=== PATIENT | male | born 1975 | race Caucasian/White ===

== ENCOUNTER 2019-01-11 00:03 | Emergency (ER) | payer SELFPAY ==
[~2019-01-11] VITALS: Ht 185.4 cm; Wt 95.3 kg
[2019-01-11 00:25] VITALS: BP 125/76
[2019-01-11] MEDS ORDERED: ONDANSETRON 4 MG TAB.RAPDIS SL ONE (01:30)
[2019-01-11] MEDS ORDERED: HYDROCODONE/APAP 10/325MG 1 EA TABLET PO ONE (01:30)
[2019-01-11] MEDS ORDERED: HYDROCODONE/APAP 10/325MG 1 EA TABLET ONE (01:34)
[2019-01-11] MEDS ORDERED: ONDANSETRON 4 MG TAB.RAPDIS ONE (01:35)
--- NOTE | 2019-01-11 01:40 | NUR ---
pt medicated as ordered.
== END 2019-01-11 03:13 | disposition home or self-care (01) ==
LOC: ER 00:08
DX: M79.641 Pain in right hand (principal); F17.200 Nicotine dependence, unspecified, uncomplicated; Z98.890 Other specified postprocedural states; Z88.5 Allergy status to narcotic agent; Z88.2 Allergy status to sulfonamides; Z88.1 Allergy status to other antibiotic agents
CPT/HCPCS: 29130; 73130; 99283; Q0162

== ENCOUNTER 2019-08-22 20:49 | Emergency (ER) | payer MEDICAID ==
[~2019-08-22] VITALS: Ht 185.4 cm; Wt 81.6 kg
[2019-08-22 21:07] VITALS: BP 118/75
--- NOTE | 2019-08-22 21:26 | NUR ---
X RAY AT THE BED SIDE
[2019-08-22] MEDS ORDERED: IBUPROFEN 600 MG TABLET PO ONE ×2 (21:27→21:30)
--- NOTE | 2019-08-22 22:24 | NUR ---
NEGAR HERNANDEZ PAC AT THE BED SIDE
[2019-08-22] MEDS ORDERED: HYDROCODONE/APAP 5/325MG 1 EACH TABLET ONE (22:29)
[2019-08-22] MEDS ORDERED: HYDROCODONE/APAP 5/325MG 1 EACH TABLET PO ONE (22:30)
--- NOTE | 2019-08-22 22:35 | NUR ---
PT WAS PROVIDED W/ ORTHO SHOES, MEDICATED ORDERED. Patient discharged to home in stable condition. Rx and Written and verbal after care instructions given. Patient verbalizes understanding of instruction.
== END 2019-08-22 22:36 | disposition home or self-care (01) ==
LOC: ER 20:49
DX: S93.505A Unspecified sprain of left lesser toe(s), initial encounter (principal); Z98.890 Other specified postprocedural states; Z88.5 Allergy status to narcotic agent; Z88.2 Allergy status to sulfonamides; Z88.1 Allergy status to other antibiotic agents; W22.8XXA Striking against or struck by other objects, initial encounter; Y93.89 Activity, other specified; Y92.89 Other specified places as the place of occurrence of the external cause; Y99.8 Other external cause status
CPT/HCPCS: 73660-TC

== ENCOUNTER 2019-11-07 00:30 | Emergency (ER) | payer MEDICAID, OTHER ==
[~2019-11-07] VITALS: Ht 185.4 cm; Wt 81.6 kg
--- NOTE | 2019-11-07 00:38 | NUR ---
BIBSELF C/O MIDSTERNAL CHEST PAIN X3 DAYS, WORSE TODAY RADIATING TO BACK ALSO C/O PERSISTENT HICCUPS X8HR, pt awake, alert, -sob, nad noted, vss, pending md olvera
[2019-11-07 00:59] LABS: BASOPHILS # (AUTO) 0.1 /CMM (0.0-0.2); BASOPHILS % (AUTO) 1.1 % (0.0-2.0); EOSINOPHILS % (AUTO) 5.5 % (0.0-6.0); HEMATOCRIT 42 % (39-51); HEMOGLOBIN 14.3 g/dL (13.5-17.5); LYMPHOCYTES # (AUTO) 3.3 /CMM (0.8-4.8); LYMPHOCYTES % (AUTO) 40.7 % (20.0-44.0); MEAN CORPUSCULAR HGB CONC 34 g/dl (31.0-36.0); MEAN CORPUSCULAR VOLUME 91 fL (80-96); MONOCYTES # (AUTO) 0.7 /CMM (0.1-1.30); MONOCYTES % (AUTO) 8.5 % (2.0-12.0); NEUTROPHILS # (AUTO) 3.6 /CMM (1.8-8.9); NEUTROPHILS % (AUTO) 44.2 % (43.0-81.0); PLATELET COUNT (AUTO) 178 /CMM (150-450); RED BLOOD CELL COUNT(AUTO) 4.58 MIL/uL (4.5-6.0); WHITE BLOOD COUNT (AUTO) 8.2 K/uL (4.3-11.0)
[2019-11-07 01:06] LABS: CALCIUM, SERUM 8.8 mg/dL (8.5-10.1); CARBON DIOXIDE 28 mmol/L (21-32); CHLORIDE 103 mmol/L (98-107); CREATININE 1.3 mg/dL (0.6-1.3); GLUCOSE 93 mg/dL (74-106); POTASSIUM 4.2 mmol/L (3.5-5.1); SODIUM SERUM 139 mmol/L (136-145); UREA NITROGEN, BLOOD 20 mg/dL (7-18)
[2019-11-07] MEDS ORDERED: MAG HYDROX/AL HYDROX/SIMETH 30 ML UDC ONE (01:32)
[2019-11-07] MEDS ORDERED: LIDOCAINE VISCOUS 2% UD 15 ML UDC ONE (01:32)
[2019-11-07] MEDS: LIDOCAINE VISCOUS 2% UD 15 ML UDC MM ONE (01:37)
[2019-11-07] MEDS: MAG HYDROX/AL HYDROX/SIMETH 30 ML UDC PO ONE (01:37)
[2019-11-07 01:40] VITALS: BP 114/78
--- NOTE | 2019-11-07 02:00 | NUR ---
Patient discharged to home in stable condition. Written and verbal after care instructions given. Patient verbalizes understanding of instruction.
== END 2019-11-07 02:03 | disposition home or self-care (01) ==
LOC: ER 00:30
DX: R07.89 Other chest pain (principal); Z98.890 Other specified postprocedural states; Z88.5 Allergy status to narcotic agent; Z88.2 Allergy status to sulfonamides; Z88.6 Allergy status to analgesic agent
CPT/HCPCS: 36415; 71045-TC; 80048-TC; 84484-TC; 85025-TC

== ENCOUNTER 2020-04-28 11:13 | Emergency (ER) | payer MEDICAID, OTHER ==
[~2020-04-28] VITALS: Ht 185.4 cm; Wt 81.6 kg
--- NOTE | 2020-04-28 11:15 | NUR ---
PT BIBSELF C/O WORSENING LOWER BACK PAIN X 4 DAYS, DENIES RECENT FALL OR INJURY. VS CHECKED. WAITING FOR MD COLLINS.
[2020-04-28] MEDS ORDERED: KETOROLAC TROMETHAMINE INJ 30 MG/ML VIAL ONE (11:57)
[2020-04-28] MEDS ORDERED: CYCLOBENZAPRINE 10 MG TABLET ONE (11:57)
[2020-04-28] MEDS ORDERED: CYCLOBENZAPRINE 10 MG TABLET PO ONE (12:00)
[2020-04-28] MEDS ORDERED: LIDOCAINE 5% (PATCH) 1 EA PATCH TP SCH (12:00)
[2020-04-28] MEDS ORDERED: KETOROLAC TROMETHAMINE INJ 60 MG/2 ML VIAL IM ONE (12:00)
[2020-04-28 13:25] VITALS: BP 135/86
--- NOTE | 2020-04-28 13:25 | NUR ---
Patient discharged to home in stable condition. Written and verbal after care instructions given. Patient verbalizes understanding of instruction.
== END 2020-04-28 13:25 | disposition home or self-care (01) ==
LOC: ER 11:13
DX: M54.42 Lumbago with sciatica, left side (principal); J45.909 Unspecified asthma, uncomplicated; Z98.890 Other specified postprocedural states; Z88.5 Allergy status to narcotic agent; Z88.2 Allergy status to sulfonamides; Z88.8 Allergy status to other drugs, medicaments and biological substances
CPT/HCPCS: 96372; 99283; J1885

== ENCOUNTER 2020-11-16 22:03 | Emergency (ER) | payer MEDICAID ==
[~2020-11-16] VITALS: Ht 185.4 cm; Wt 99.3 kg
--- NOTE | 2020-11-16 22:05 | NUR ---
PT AAOX4. BIBS FOR C/O L SIDED BURNING CP 11/19 RADIATING TO THE L ARM SINCE 1599. ALSO NOTED ABD DISTENSION. PLACED IN BED 10 ON MONITOR AND PULSE OX. VSS. AWATITING ER MD FOR EVAL AND ORDERS.
[2020-11-16] MEDS ORDERED: IV NS 0.9% 500 ML BAG IV ONE (22:30)
[2020-11-16 22:38] LABS: BASOPHILS # (AUTO) 0.1 /CMM (0.0-0.2); BASOPHILS % (AUTO) 0.7 % (0.0-2.0); EOSINOPHILS % (AUTO) 5.7 % (0.0-6.0); HEMATOCRIT 44 % (39-51); HEMOGLOBIN 15.2 g/dL (13.5-17.5); LYMPHOCYTES # (AUTO) 2.5 /CMM (0.8-4.8); LYMPHOCYTES % (AUTO) 32.5 % (20.0-44.0); MEAN CORPUSCULAR HGB CONC 35 g/dl (31.0-36.0); MEAN CORPUSCULAR VOLUME 91 fL (80-96); MONOCYTES # (AUTO) 0.7 /CMM (0.1-1.30); MONOCYTES % (AUTO) 8.6 % (2.0-12.0); NEUTROPHILS % (AUTO) 52.5 % (43.0-81.0); PLATELET COUNT (AUTO) 202 /CMM (150-450); RED BLOOD CELL COUNT(AUTO) 4.88 MIL/uL (4.5-6.0); WHITE BLOOD COUNT (AUTO) 7.7 K/uL (4.3-11.0)
[2020-11-16 22:52] LABS: CALCIUM, SERUM 9.2 mg/dL (8.5-10.1); CARBON DIOXIDE 28 mmol/L (21-32); CHLORIDE 105 mmol/L (98-107); CREATININE 1.2 mg/dL (0.6-1.3); GLUCOSE 89 mg/dL (74-106); POTASSIUM 4.3 mmol/L (3.5-5.1); SODIUM SERUM 140 mmol/L (136-145); UREA NITROGEN, BLOOD 16 mg/dL (7-18)
[2020-11-16 23:02] LABS: ALANINE AMINOTRANSFERASE 67 U/L (12-78); ALBUMIN 3.8 g/dL (3.4-5.0); ALKALINE PHOSPHATASE 73 U/L (46-116); ASPARTATE AMINOTRANSFERASE 33 U/L (15-37); BILIRUBIN,DIRECT 0.2 mg/dL (0.0-0.2); BILIRUBIN,TOTAL 0.6 mg/dL (0.2-1.0); NT-PRO BNP 126 pg/mL (0-125); TOTAL PROTEIN, SERUM 7.5 g/dL (6.4-8.2)
[2020-11-16] MEDS ORDERED: MAG HYDROX/AL HYDROX/SIMETH 30 ML UDC PO ONE (23:30)
[2020-11-16] MEDS ORDERED: LIDOCAINE VISCOUS 2% UD 15 ML UDC MM ONE (23:30)
--- NOTE | 2020-11-16 23:32 | NUR ---
BROUGHT TO CT
[2020-11-16] MEDS ORDERED: MAG HYDROX/AL HYDROX/SIMETH 30 ML UDC ONE (23:42)
[2020-11-16] MEDS ORDERED: LIDOCAINE VISCOUS 2% UD 15 ML UDC ONE (23:42)
[2020-11-17] MEDS ORDERED: SIME180C70 PO (00:02)
--- NOTE | 2020-11-17 00:08 | NUR ---
Patient discharged to home in stable condition. Written and verbal after care instructions given. Patient verbalizes understanding of instruction and RX. Pt ambulated out of ED. VSS.
--- NOTE | 2020-11-17 00:08 | NUR ---
IV removed. Catheter intact and site benign. Pressure and 4x4 applied to site. No bleeding noted.
[2020-11-17 00:42] VITALS: BP 111/76
== END 2020-11-17 00:42 | disposition home or self-care (01) ==
LOC: ER 22:06
DX: K29.70 Gastritis, unspecified, without bleeding (principal); I25.2 Old myocardial infarction; J45.909 Unspecified asthma, uncomplicated; Z87.891 Personal history of nicotine dependence; Z88.5 Allergy status to narcotic agent; Z88.2 Allergy status to sulfonamides; Z88.1 Allergy status to other antibiotic agents
CPT/HCPCS: 36415; 71045; 74176; 80048; 80076; 83880; 84484; 85025; 93005 ×3; 99285; J7040

== ENCOUNTER 2021-05-30 20:43 | Emergency (ER) | payer MEDICAID ==
[~2021-05-30] VITALS: Ht 185.4 cm; Wt 86.2 kg
[~2021-05-30 20:43] MED LIST: SIME180C47 PO
--- NOTE | 2021-05-30 20:48 | NUR ---
BIBS FOR C/O L SIDED CP RADITING TO THE R NECK X 5-6 HOURS. ALSO W/ C/O L FLABNK PAIN X 1 DAY. PT A/OX4. TOLRATING R/A WELL WITH NO SOB. CONNECTED PT TO MONITOR AND POX
--- NOTE | 2021-05-30 21:25 | NUR ---
LAC #20S/L PATENT AND INTACT. COLLECTED BLOOD AND SENT TO LAB
[2021-05-30] MEDS ORDERED: ONDANSETRON HCL/PF 4 MG/2 ML VIAL ONE (21:29)
[2021-05-30] MEDS ORDERED: ONDANSETRON HCL/PF 4 MG/2 ML VIAL IVP ONE (21:30)
[2021-05-30] MEDS ORDERED: MORPHINE SULFATE INJ 2 MG/ML DISP.SYRIN IV ONE (21:30)
[2021-05-30] MEDS ORDERED: MORPHINE SULFATE INJ 4 MG/ML DISP.SYRIN ONE (21:30)
--- NOTE | 2021-05-30 21:38 | NUR ---
PT TAKEN TO CT VIA [facility]
[2021-05-30 22:11] LABS: BILIRUBIN,URINE NEGATIVE (NEGATIVE); COLOR,URINE YELLOW (YELLOW); LEUKOCYTE ESTERASE ,URINE NEGATIVE (NEGATIVE); NITRITE, URINE NEGATIVE (NEGATIVE); PROTEIN,URINE NEGATIVE (NEGATIVE); UGLUCOSE NEGATIVE (NEGATIVE); UROBILINOGEN,URINE 0.2 EU/dL (0.2)
[2021-05-30 22:13] LABS: BASOPHILS % (AUTO) 0.7 % (0.0-2.0); EOSINOPHILS % (AUTO) 4.6 % (0.0-6.0); HEMATOCRIT 40 % (39-51); LYMPHOCYTES % (AUTO) 29.1 % (20.0-44.0); MEAN CORPUSCULAR HGB CONC 35 g/dl (31.0-36.0); MEAN CORPUSCULAR VOLUME 90 fL (80-96); MONOCYTES # (AUTO) 0.6 K/uL (0.1-1.30); MONOCYTES % (AUTO) 9.3 % (2.0-12.0); NEUTROPHILS # (AUTO) 3.9 K/uL (1.8-8.9); NEUTROPHILS % (AUTO) 56.3 % (43.0-81.0); PLATELET COUNT (AUTO) 169 K/uL (150-450); RED BLOOD CELL COUNT(AUTO) 4.46 MIL/uL (4.5-6.0)
[2021-05-30] MEDS ORDERED: KETOROLAC TROMETHAMINE INJ 30 MG/ML VIAL ONE (22:23)
[2021-05-30 22:24] LABS: CALCIUM, SERUM 8.5 mg/dL (8.5-10.1); CARBON DIOXIDE 23 mmol/L (21-32); CHLORIDE 108 mmol/L (98-107); CREATININE 1.3 mg/dL (0.6-1.3); GLUCOSE 118 mg/dL (74-106); POTASSIUM 3.8 mmol/L (3.5-5.1); SODIUM SERUM 140 mmol/L (136-145); UREA NITROGEN, BLOOD 18 mg/dL (7-18)
--- NOTE | 2021-05-30 22:28 | NUR ---
PT C/O 01/19 CP. KASHIF PARHAM GAVE VERBAL ORDER FOR TORADOL 30MG IVP ONCE FOR CP. ORDERS CARRIED OUT AND ADMIN. VSS BP 110/73
[2021-05-30 22:29] LABS: ALANINE AMINOTRANSFERASE 39 U/L (12-78); ALBUMIN 3.6 g/dL (3.4-5.0); ALKALINE PHOSPHATASE 90 U/L (46-116); ASPARTATE AMINOTRANSFERASE 17 U/L (15-37); BILIRUBIN,DIRECT 0.2 mg/dL (0.0-0.2); BILIRUBIN,TOTAL 0.9 mg/dL (0.2-1.0); LIPASE 76 U/L (73-393)
[2021-05-30] MEDS ORDERED: KETOROLAC TROMETHAMINE INJ 30 MG/ML VIAL IV ONE (23:00)
[2021-05-31] MEDS ORDERED: MORPHINE SULFATE INJ 4 MG/ML DISP.SYRIN ONE (00:26)
[2021-05-31] MEDS ORDERED: MORPHINE SULFATE INJ 2 MG/ML DISP.SYRIN IV ONE (00:30)
[2021-05-31] MEDS ORDERED: IBUP-1957 PO (01:11)
--- NOTE | 2021-05-31 01:20 | NUR ---
Patient discharged to home in stable condition. Written and verbal after care instructions given. Patient verbalizes understanding of instruction. IV removed. Catheter intact and site benign. Pressure and 4x4 applied to site. No bleeding noted. PT ambulatory with a steady gait
[2021-05-31 01:22] VITALS: BP 105/70
[2021-05-31 03:50] LABS: BACTERIA,URINE None seen /HPF (None Seen); SQUAMOUS EPITHELIAL CELL,UR Few /HPF (None Seen)
[2021-05-31 07:19] LABS: WBC,URINE 0-2 /HPF (0-3)
== END 2021-05-31 01:20 | disposition home or self-care (01) ==
LOC: ER 20:45
DX: R07.89 Other chest pain (principal); N20.0 Calculus of kidney; J45.909 Unspecified asthma, uncomplicated; I25.2 Old myocardial infarction; E78.5 Hyperlipidemia, unspecified; F17.290 Nicotine dependence, other tobacco product, uncomplicated; Z88.2 Allergy status to sulfonamides; Z88.8 Allergy status to other drugs, medicaments and biological substances; Z79.1 Long term (current) use of non-steroidal anti-inflammatories (NSAID); Z79.899 Other long term (current) drug therapy
CPT/HCPCS: 36415 ×2; 71045; 74176; 80048; 80076; 81001; 83690; 84484 ×2; 85025; 93005; 96374; 96375; 96376; 99285; J1885; J2270 ×2; J2405

== ENCOUNTER 2021-08-08 15:40 | Inpatient (IN) | payer MEDICAID ==
[~2021-08-08] VITALS: Ht 185.4 cm; Wt 100.7 kg
[~2021-08-08 15:40] MED LIST changes: +IBUP-1957 PO
--- NOTE | 2021-08-08 15:40 | NUR ---
SENT TO ER BED 10. BIB SELF C/O CHEST PAIN, HAS HISTORY OF HEART ATTACK A YEAR PRIOR. ATTACHED TO MONITOR. WARM BLANKET PROVIDED FOR COMFORT. AWAITING MD COLLINS
--- NOTE | 2021-08-08 16:01 | NUR ---
SALINE LOCK ESTABLISHED AND BLOOD DRAWN, READY FOR LAB DIORAMIST
[2021-08-08] MEDS ORDERED: ASPIRIN 325 MG TABLET ONE (16:15)
[2021-08-08] MEDS ORDERED: ASPIRIN 325 MG TABLET PO ONE (16:30)
[2021-08-08 16:39] LABS: BASOPHILS # (AUTO) 0.1 K/uL (0.0-0.2); BASOPHILS % (AUTO) 0.9 % (0.0-2.0); EOSINOPHILS % (AUTO) 4.6 % (0.0-6.0); HEMATOCRIT 44 % (39-51); HEMOGLOBIN 15.3 g/dL (13.5-17.5); LYMPHOCYTES # (AUTO) 2.3 K/uL (0.8-4.8); LYMPHOCYTES % (AUTO) 29.2 % (20.0-44.0); MEAN CORPUSCULAR HGB CONC 35 g/dl (31.0-36.0); MEAN CORPUSCULAR VOLUME 90 fL (80-96); MONOCYTES # (AUTO) 0.6 K/uL (0.1-1.30); MONOCYTES % (AUTO) 8.1 % (2.0-12.0); NEUTROPHILS # (AUTO) 4.4 K/uL (1.8-8.9); NEUTROPHILS % (AUTO) 57.2 % (43.0-81.0); PLATELET COUNT (AUTO) 206 K/uL (150-450); RED BLOOD CELL COUNT(AUTO) 4.91 MIL/uL (4.5-6.0); WHITE BLOOD COUNT (AUTO) 7.8 K/uL (4.3-11.0)
--- NOTE | 2021-08-08 16:41 | NUR ---
COVID TEST COLLECTED AND SENT
--- NOTE | 2021-08-08 16:44 | NUR ---
X RAY AT BEDSIDE
[2021-08-08] MEDS ORDERED: ATOR40TA PO (17:08)
[2021-08-08] MEDS ORDERED: AMLO-212 PO (17:08)
[2021-08-08] MEDS ORDERED: PANT40TA49 PO (17:08)
[2021-08-08] MEDS ORDERED: METO25TA20 PO (17:08)
[2021-08-08] MEDS ORDERED: FAMO20TA8 PO (17:08)
[2021-08-08] MEDS ORDERED: ASPI-1420 PO (17:08)
[2021-08-08] MEDS ORDERED: CLOP75TA15 PO (17:08)
[2021-08-08] MEDS ORDERED: KETOROLAC TROMETHAMINE 15 MG/ML VIAL ONE (17:30)
[2021-08-08 17:45] LABS: ALANINE AMINOTRANSFERASE 50 U/L (12-78); ALBUMIN 3.8 g/dL (3.4-5.0); ALKALINE PHOSPHATASE 95 U/L (46-116); ASPARTATE AMINOTRANSFERASE 29 U/L (15-37); BILIRUBIN,DIRECT 0.1 mg/dL (0.0-0.2); BILIRUBIN,TOTAL 1.3 mg/dL (0.2-1.0); CALCIUM, SERUM 8.6 mg/dL (8.5-10.1); CARBON DIOXIDE 26 mmol/L (21-32); CHLORIDE 104 mmol/L (98-107); CREATININE 1.1 mg/dL (0.6-1.3); GLUCOSE 85 mg/dL (74-106); POTASSIUM 4.1 mmol/L (3.5-5.1); SODIUM SERUM 137 mmol/L (136-145); TOTAL PROTEIN, SERUM 7.5 g/dL (6.4-8.2); UREA NITROGEN, BLOOD 17 mg/dL (7-18)
[2021-08-08] MEDS ORDERED: KETOROLAC TROMETHAMINE INJ 30 MG/ML VIAL IV ONE (18:00)
[2021-08-08] MEDS ORDERED: MORPHINE SULFATE INJ 2 MG/ML DISP.SYRIN ONE (18:42)
--- NOTE | 2021-08-08 18:58 | NUR ---
SPOKE TO LABORER [employer] NE[employer] OF [facility] [phone] RE CURRENT OF PATIENT. SHE WILL DISCUSS THE CASE AND CALL ADMITTING OF ANY AUTHORIZATION
--- NOTE | 2021-08-08 19:30 | NUR ---
PT AUTHORIZED TO STAY.
--- NOTE | 2021-08-08 19:35 | NUR ---
DR. MADDOX TALKING TO MARIA DEL CARMEN PARHAM.
--- NOTE | 2021-08-08 19:43 | NUR ---
CALLED DR. GUTIERREZ OFFICE, AND MARIA DEL CARMEN PARHAM AND DR. GUTIERREZ SPEAKING NOW
[2021-08-08] MEDS ORDERED: ENOXAPARIN SODIUM 100 MG/ML DISP.SYRIN SQ ONE ×2 (20:00→20:19)
[2021-08-08] MEDS ORDERED: METOPROLOL TARTRATE 25 MG TABLET PO ONE (20:00)
[2021-08-08] MEDS ORDERED: METOPROLOL TARTRATE 25 MG TABLET ONE (20:19)
--- NOTE | 2021-08-08 20:47 | NUR ---
ASSIGNED 315-1
--- NOTE | 2021-08-08 21:05 | NUR ---
REPORT GIVEN TO DIGNA Bell RN FOR HEAVEN
[2021-08-08 21:40] VITALS: BP 133/81
[2021-08-08 22:00] VITALS: BP 133/79
[2021-08-08] MEDS ORDERED: ZOLPIDEM TARTRATE 5 MG TABLET PO PRN (22:00)
--- NOTE | 2021-08-08 22:00 | NUR ---
PT TRANSFERRED TO 315-1 VIA ACLS PROTOCOL. ALL BELONGINGS WITH PT. VSS; TOLERATING WELL
[2021-08-08] MEDS: MORPHINE SULFATE INJ 2 MG/ML DISP.SYRIN IV PRN (22:12)
[2021-08-08] MEDS ORDERED: ONDANSETRON 4 MG TAB.RAPDIS PO PRN (23:00)
[2021-08-08] MEDS ORDERED: HYDROCODONE/APAP 5/325MG TABLET PO PRN (23:00)
[2021-08-08] MEDS ORDERED: ACETAMINOPHEN 325 MG TABLET PO PRN (23:00)
--- NOTE | 2021-08-08 23:25 | NUR ---
SEED YEAST OPERATOR NOTE Patient arrived to unit at 2130 accompanied by ER staff. Appears in no distress, but patient does report 8/10 chest pain -will medicate with PRN Morphine as ordered. Denies SOB, headache, n/v. No diaphoresis noted. HR 61, rhythm regular. B/P 133/81, RR 19, O2 sat 97%, temp 97.7. Patient is A&Ox4, pupils equal and reactive to light, lung sounds clear, bowel sounds active x4 quadrants. Ambulatory and steady. Skin intact. Patient oriented to unit and protocols. Tele monitor applied promptly. Will keep NPO post midnight for [facility] in AM -consents signed.
[2021-08-09] VITALS: BP 128/80
[2021-08-09] MEDS: MORPHINE SULFATE INJ 2 MG/ML DISP.SYRIN IV PRN (01:14)
[2021-08-09] MEDS ORDERED: NITROGLYCERIN 0.4 MG/TAB BOTTLE SL PRN (02:02)
--- NOTE | 2021-08-09 02:14 | NUR ---
accidentally paged [facility] for Dr. Hassan patient. ERROR. order for nitro and EKG D/C'd. Paging Dr. Hassan now.
--- NOTE | 2021-08-09 02:15 | NUR ---
Patient reports CP still as 9/10 and pressure-like causing him to feel SOB despite O2 sats currently being 100%, CP radiates to L shoulder, and L side of body feels "tingly". However, L side pulses and normal and extremities are warm. Chest pain is UNRESOLVED despite morphine being given 45 minutes prior to secondary complaint. B/P 123/86, HR 63. Dr. Hassan paged with new order to d/c morphine and change to Dilaudid 1mg PRN Q3H for severe pain. and STAT CT chest with contrast.
[2021-08-09] MEDS ORDERED: IV NS 0.9% 250 ML IV ONE ×2 (02:35→09:27)
[2021-08-09] MEDS ORDERED: IOHEXOL-300 100 ML VIAL IV ONE (02:35)
[2021-08-09] MEDS: HYDROMORPHONE 1 MG/1 ML DISP.SYRIN IV PRN ×3 (03:15→10:16)
[2021-08-09 04:00] VITALS: BP 116/75
[2021-08-09 04:30] LABS: BASOPHILS % (AUTO) 0.6 % (0.0-2.0); EOSINOPHILS % (AUTO) 5.2 % (0.0-6.0); HEMATOCRIT 43 % (39-51); HEMOGLOBIN 14.7 g/dL (13.5-17.5); LYMPHOCYTES # (AUTO) 2.9 K/uL (0.8-4.8); LYMPHOCYTES % (AUTO) 37.7 % (20.0-44.0); MEAN CORPUSCULAR HGB CONC 34 g/dl (31.0-36.0); MEAN CORPUSCULAR VOLUME 89 fL (80-96); MONOCYTES # (AUTO) 0.7 K/uL (0.1-1.30); MONOCYTES % (AUTO) 9.4 % (2.0-12.0); NEUTROPHILS # (AUTO) 3.7 K/uL (1.8-8.9); NEUTROPHILS % (AUTO) 47.1 % (43.0-81.0); PLATELET COUNT (AUTO) 183 K/uL (150-450); RED BLOOD CELL COUNT(AUTO) 4.83 MIL/uL (4.5-6.0); WHITE BLOOD COUNT (AUTO) 7.8 K/uL (4.3-11.0)
[2021-08-09 05:09] LABS: CALCIUM, SERUM 8.4 mg/dL (8.5-10.1); CREATININE 1.1 mg/dL (0.6-1.3); POTASSIUM 4.4 mmol/L (3.5-5.1)
--- NOTE | 2021-08-09 05:22 | NUR ---
Chest CT still unread -call radiology health information internship line
--- NOTE | 2021-08-09 06:42 | NUR ---
Patient currently A&Ox4, states that the dilaudid works much better for him than the dilaudid and made the chest pain go away for almost [address] of chest came back negative for any acute processes. Patient has been SR in 60s and 70s on tele monitor. Has been NPO since midnight. RAC #20G IV intact and patent.
--- NOTE | 2021-08-09 07:28 | NUR ---
IS ARCHITECT OPENING NOTES RECEIVED PT AWAKE IN BED IN NO ACUTE SIGNS OF DISTRESS. A/O X4. ABLE TO MAKE NEEDS KNOWN, DENIES PAIN OR ANY DISCOMFORTS AT THIS TIME. ON ROOM AIR, TOLERATING WELL WITH NO SOB NOTED. ON TELE-MONITOR WITH CURRENT READING OF SB, HR 58, NO C/O CARDIAC DISTRESS VOICED AT THIS TIME. IV ACCESS ON RAC G#18 INTACT, PATENT AND FLUSHES WELL. SAFETY PRECAUTIONS IN PLACE: BED IN LOWEST LOCKED POSITION, SIDE-RAILS UPx2, TRAY TABLE AND CALL LIGHT WITHIN EASY REACH OF PT. WILL CONTINUE TO MONITOR.
[2021-08-09] MEDS ORDERED: PANTOPRAZOLE 40 MG TABLET.DR PO SCH (07:30)
[2021-08-09] MEDS: METOPROLOL TARTRATE 25 MG TABLET PO SCH ×2 (08:18→16:24)
[2021-08-09] MEDS: FAMOTIDINE (20 MG) 20 MG TABLET PO SCH ×2 (08:20→16:23)
[2021-08-09 08:38] VITALS: BP 113/75
[2021-08-09] MEDS ORDERED: AMLODIPINE BESYLATE 5 MG TABLET PO SCH (09:00)
[2021-08-09] MEDS ORDERED: ATORVASTATIN 10 MG TABLET PO SCH (09:00)
[2021-08-09] MEDS ORDERED: CLOPIDOGREL BISULFATE 75 MG TABLET PO SCH (09:00)
[2021-08-09] MEDS ORDERED: ASPIRIN EC 81 MG TABLET.DR PO SCH (09:00)
[2021-08-09] MEDS ORDERED: IOHEXOL-350 100 ML VIAL IV ONE (09:27)
[2021-08-09] MEDS ORDERED: METOPROLOL TARTRATE INJ 5 MG/5 ML AMPUL ONE (09:27)
[2021-08-09] MEDS ORDERED: CT SWABBABLE VALVE TRANS SET 1 EA INFUS.SET MC ONE (09:27)
[2021-08-09] MEDS ORDERED: NITROGLYCERIN 0.4 MG/TAB BOTTLE ONE (09:27)
[2021-08-09] MEDS ORDERED: NITROGLYCERIN 0.4 MG/TAB BOTTLE SL ONE (09:30)
[2021-08-09] MEDS ORDERED: METOPROLOL TARTRATE INJ 5 MG/5 ML AMPUL IVP PRN (09:30)
--- NOTE | 2021-08-09 10:18 | NUR ---
RN NOTES PT C/O PF ACHING AND TIGHTNESS PAIN ON LEFT CHEST, 8/10 SCALE. PRN DILAUDID 1MG/ML IVP ADMINISTERED AT 1016. WILL CONTINUE TO MONITOR AND REASSESS PT.
--- NOTE | 2021-08-09 10:32 | NUR ---
RN NOTES PT RETURNED FROM [facility] VIA WHEELCHAIR. DR MADDOX WITH ORDER TO D/C NPO AND PLACED PT ON CARDIAC DIET.
--- NOTE | 2021-08-09 14:51 | NUR ---
RN NOTES RELAYED RESULTS OF [facility] TO DR GUTIERREZ AND CLEARED PT FOR D/C TODAY.
--- NOTE | 2021-08-09 15:02 | NUR ---
RN NOTES INFORMED DR MADDOX OF CT OF BRAIN RESULTS AND OK TO D/C HOME PT THIS AFTERNOON.
[2021-08-09 16:10] VITALS: BP 122/63
[2021-08-09 16:24] VITALS: BP 122/63
--- NOTE | 2021-08-09 16:53 | NUR ---
RN DISCHARGED NOTES PT DISCHARGED HOME IN STABLE CONDITION. A/O X4. ABLE TO MAKE NEEDS KNOWN. ALL NEEDS AND CARE ATTENDED WELL. V/S TAKEN AND STABLE. NO SKIN ISSUES NOTED. ALL BELONGINGS ACCOUNTED FOR AND PT SIGNED BELONGINGS LIST. IBVACCESS ON RAC REMOVED WITH NO ACTIVE BLEEDING NOTED, DRY PRESSURE DRESSING APPLIED AT SITE. NAME ARMBAND REMOVED. HEALTH TEACHINGS AND DISCHARGED INSTRUCTIONS GIVEN TO PT AND VERBALIZED UNDERSTANDING. PT LEFT UNIT AT 1635 AMBULATORY ACCOMPANIED BY SOCO COCHRAN. PT'S WILL TAKE PT HOME. MD AND CHARGE NURSE AWARE OF DISCHARGE.
[2021-08-09] MEDS ORDERED: ATORVASTATIN 40 MG TABLET PO SCH (18:00)
[2021-08-09] MEDS ORDERED: ENOXAPARIN SODIUM 40 MG/0.4 ML DISP.SYRIN SQ SCH (21:00)
== END 2021-08-09 16:34 | disposition home or self-care (01) | DRG 203 ==
LOC: ER 15:43 → TELE 20:51
PROVIDERS: ADMIT Internal Medicine; ATTEND Internal Medicine
DX: M94.0 Chondrocostal junction syndrome [Tietze] (principal); E78.5 Hyperlipidemia, unspecified; I25.10 Atherosclerotic heart disease of native coronary artery without angina pectoris; I25.2 Old myocardial infarction; J45.909 Unspecified asthma, uncomplicated; I10 Essential (primary) hypertension; Z87.442 Personal history of urinary calculi; Z95.5 Presence of coronary angioplasty implant and graft; Z20.822 Contact with and (suspected) exposure to COVID-19
CPT/HCPCS: 36415; 70450-TC; 71045-TC; 71260-TC; 75574; 80048-TC; 80061-TC; 80076-TC; 83880; 84484-TC; 85025-TC; 85378-TC; 87081-TC; 93307-TC; C9803; G0378; J1170; J1650; J1885; J2270; J3490; J7050; Q9967

== ENCOUNTER 2021-11-22 23:29 | Emergency (ER) | payer MEDICAID ==
[~2021-11-22] VITALS: Ht 188 cm; Wt 62.6 kg
[~2021-11-22 23:29] MED LIST changes: +AMLO-212 PO; +ASPI-1420 PO; +ATOR40TA PO; +CLOP75TA15 PO; +FAMO20TA8 PO; -IBUP-1957 PO; +METO25TA20 PO; +PANT40TA49 PO; -SIME180C47 PO
--- NOTE | 2021-11-22 23:55 | NUR ---
TO ER BED 3. BIBS C/O L UPPER BACK PAIN RADIATING TO LEFT CHEST AND L ARM BURNING SENSATION X 3 DAYS. PT TOOK MOTRIN 600 MG WITH LITTLE RELIEF. PT AAOX4. AMBULATORY. HX 2 STENTS. CONNECTED TO MONITOR. AWAITING MD COLLINS
--- NOTE | 2021-11-22 23:56 | NUR ---
MARIA DEL CARMEN MCKEON AT BEDSIDE FOR EKG
--- NOTE | 2021-11-23 00:02 | NUR ---
LAB AT BEDSIDE
[2021-11-23 00:09] LABS: BASOPHILS # (AUTO) 0.1 K/uL (0.0-0.2); BASOPHILS % (AUTO) 0.7 % (0.0-2.0); EOSINOPHILS % (AUTO) 2.8 % (0.0-6.0); HEMATOCRIT 41 % (39-51); HEMOGLOBIN 14.2 g/dL (13.5-17.5); LYMPHOCYTES # (AUTO) 2.4 K/uL (0.8-4.8); LYMPHOCYTES % (AUTO) 24.8 % (20.0-44.0); MEAN CORPUSCULAR HGB CONC 34 g/dl (31.0-36.0); MEAN CORPUSCULAR VOLUME 88 fL (80-96); MONOCYTES # (AUTO) 0.9 K/uL (0.1-1.30); MONOCYTES % (AUTO) 8.9 % (2.0-12.0); NEUTROPHILS # (AUTO) 6.1 K/uL (1.8-8.9); NEUTROPHILS % (AUTO) 62.8 % (43.0-81.0); PLATELET COUNT (AUTO) 242 K/uL (150-450); RED BLOOD CELL COUNT(AUTO) 4.73 MIL/uL (4.5-6.0); WHITE BLOOD COUNT (AUTO) 9.8 K/uL (4.3-11.0)
[2021-11-23 00:27] LABS: CALCIUM, SERUM 8.5 mg/dL (8.5-10.1); CARBON DIOXIDE 28 mmol/L (21-32); CHLORIDE 105 mmol/L (98-107); CREATININE 1.3 mg/dL (0.6-1.3); GLUCOSE 86 mg/dL (74-106); POTASSIUM 3.9 mmol/L (3.5-5.1); SODIUM SERUM 138 mmol/L (136-145); UREA NITROGEN, BLOOD 23 mg/dL (7-18)
[2021-11-23] MEDS ORDERED: MORPHINE SULFATE INJ 4 MG/ML DISP.SYRIN ONE ×2 (00:43→06:03)
[2021-11-23] MEDS ORDERED: ONDANSETRON HCL/PF 4 MG/2 ML VIAL ONE (00:50)
--- NOTE | 2021-11-23 00:52 | NUR ---
XRAY AT BEDSIDE
--- NOTE | 2021-11-23 00:55 | NUR ---
COVID SWAB DONE AND SENT TO LAB
--- NOTE | 2021-11-23 00:55 | NUR ---
IV LINE ESTABLISHED, LAC 18G
[2021-11-23] MEDS ORDERED: MORPHINE SULFATE INJ 2 MG/ML DISP.SYRIN IV ONE ×2 (01:00→06:30)
[2021-11-23] MEDS ORDERED: ONDANSETRON HCL/PF 4 MG/2 ML VIAL IV ONE (01:00)
--- NOTE | 2021-11-23 01:24 | NUR ---
called statrad for cxr read
--- NOTE | 2021-11-23 02:15 | NUR ---
faxed covid results to [facility] at [phone]
[2021-11-23] MEDS ORDERED: ASPIRIN 325 MG TABLET ONE (02:42)
[2021-11-23] MEDS ORDERED: HYDROMORPHONE 1 MG/1 ML DISP.SYRIN ONE ×2 (02:55→08:00)
[2021-11-23] MEDS ORDERED: ASPIRIN 325 MG TABLET PO ONE (03:00)
[2021-11-23] MEDS ORDERED: HYDROMORPHONE INJ 2 MG/ML DISP.SYRIN IV ONE (03:00)
[2021-11-23] MEDS ORDERED: IV NS 0.9% 1,000 ML IV ONE (03:00)
--- NOTE | 2021-11-23 03:01 | NUR ---
PT TAKEN TO CT VIA [facility]
[2021-11-23] MEDS ORDERED: IV NS 0.9% 250 ML IV ONE (03:09)
[2021-11-23] MEDS ORDERED: IOHEXOL-300 100 ML VIAL IV ONE (03:09)
[2021-11-23] MEDS ORDERED: CT SWABBABLE VALVE TRANS SET 1 EA INFUS.SET MC ONE (03:09)
--- NOTE | 2021-11-23 03:28 | NUR ---
PT RETURNED TO ER BED [address]
--- NOTE | 2021-11-23 03:45 | NUR ---
CALLED [facility] AND SPOKE WITH BECKY TO REQUEST FOR A STAT EXPEDITED STA READ
--- NOTE | 2021-11-23 03:49 | NUR ---
RT AT PT'S BEDSIDE FOR BREATHING TX
--- NOTE | 2021-11-23 05:07 | NUR ---
ALYSA RODRIGUEZ, ETA: 0800 TO [facility]QU[facility] ARAGON RM#[id number] NO FOR REPORT: [phone] PER TATIANNA INSIDE TESTER
--- NOTE | 2021-11-23 05:36 | NUR ---
PER [facility], ACCEPTING DR CALEB GOODSON
--- NOTE | 2021-11-23 07:39 | NUR ---
REPORT GIVEN TO DUDLEY RIVERO AT [facility]
[2021-11-23] MEDS ORDERED: HYDROMORPHONE 1 MG/1 ML DISP.SYRIN IV ONE (08:00)
--- NOTE | 2021-11-23 08:34 | NUR ---
CALLED ALY[facility] TO ASK ABOUT [facility] ETA AND [facility] NOTIFIED THAT THEY HAVE AN ETA OF 0840
[2021-11-23 08:55] VITALS: BP 108/70
--- NOTE | 2021-11-23 09:01 | NUR ---
TRANSPORTATION ARRIVED, REPORT GIVEN, PT TRANSPORTED IN STABLE CONDITION VIA [facility] TO [facility].
== END 2021-11-23 09:13 | disposition short-term general hospital (02) ==
LOC: ER 23:30
DX: R07.9 Chest pain, unspecified (principal); I25.2 Old myocardial infarction; I25.10 Atherosclerotic heart disease of native coronary artery without angina pectoris; N28.9 Disorder of kidney and ureter, unspecified; J45.909 Unspecified asthma, uncomplicated; Z20.822 Contact with and (suspected) exposure to COVID-19; Z88.2 Allergy status to sulfonamides; F17.200 Nicotine dependence, unspecified, uncomplicated; Z95.5 Presence of coronary angioplasty implant and graft; Z79.02 Long term (current) use of antithrombotics/antiplatelets; Z79.82 Long term (current) use of aspirin; Z79.899 Other long term (current) drug therapy
CPT/HCPCS: 36415 ×2; 71045; 71275; 80048; 84484 ×2; 85025; 87426; 93005 ×2; 96361; 96374; 96375; 96376; 99291; C9803; J1170 ×2; J2270 ×2; J2405; J7050; Q9967

== ENCOUNTER 2022-01-14 01:32 | Emergency (ER) | payer MEDICAID ==
[~2022-01-14] VITALS: Ht 185.4 cm; Wt 81.6 kg
--- NOTE | 2022-01-14 01:55 | NUR ---
TO ER BED 4. BIBS. L CHEST PAIN RADIAITING TO L ARM X 2100 INTERMITENT SHARP 01/19 LAST EPISODE STARTED 20 MIN BASEBALL SEWER HAND. NITRO X 1 DOSE TAKE AT 2200. PT IS ALERT AND ORIENTED. AMBULATORY WITH STEADY GAIT. BREATHING IS EVEN AND NON LABORED. CONNECTED TO MONITOR. AWAITING MD COLLINS
--- NOTE | 2022-01-14 02:11 | NUR ---
BLOOD COLLECTED AND SENT TO LAB
[2022-01-14] MEDS ORDERED: ASPIRIN 325 MG TABLET ONE (02:15)
[2022-01-14] MEDS ORDERED: NITROGLYCERIN 0.4 MG/TAB BOTTLE ONE (02:15)
--- NOTE | 2022-01-14 02:19 | NUR ---
IV LINE ESTABLISHED, LAC18G
[2022-01-14 02:22] LABS: BASOPHILS % (AUTO) 0.7 % (0.0-2.0); EOSINOPHILS % (AUTO) 4.1 % (0.0-6.0); HEMATOCRIT 40 % (39-51); HEMOGLOBIN 13.8 g/dL (13.5-17.5); LYMPHOCYTES # (AUTO) 2.3 K/uL (0.8-4.8); LYMPHOCYTES % (AUTO) 33.6 % (20.0-44.0); MEAN CORPUSCULAR HGB CONC 35 g/dl (31.0-36.0); MEAN CORPUSCULAR VOLUME 90 fL (80-96); MONOCYTES # (AUTO) 0.7 K/uL (0.1-1.30); MONOCYTES % (AUTO) 9.8 % (2.0-12.0); NEUTROPHILS # (AUTO) 3.6 K/uL (1.8-8.9); NEUTROPHILS % (AUTO) 51.8 % (43.0-81.0); PLATELET COUNT (AUTO) 195 K/uL (150-450); RED BLOOD CELL COUNT(AUTO) 4.43 MIL/uL (4.5-6.0); WHITE BLOOD COUNT (AUTO) 6.9 K/uL (4.3-11.0)
--- NOTE | 2022-01-14 02:22 | NUR ---
COVID SWAB COLLECTED AND SENT TO LAB
[2022-01-14] MEDS ORDERED: NITROGLYCERIN 0.4 MG/TAB BOTTLE SL ONE (02:30)
[2022-01-14] MEDS ORDERED: ASPIRIN 325 MG TABLET PO ONE (02:30)
[2022-01-14 02:38] LABS: CALCIUM, SERUM 8.5 mg/dL (8.5-10.1); CARBON DIOXIDE 27 mmol/L (21-32); CHLORIDE 104 mmol/L (98-107); CREATININE 1.5 mg/dL (0.6-1.3); GLUCOSE 111 mg/dL (74-106); POTASSIUM 3.4 mmol/L (3.5-5.1); SODIUM SERUM 139 mmol/L (136-145); UREA NITROGEN, BLOOD 13 mg/dL (7-18)
[2022-01-14 02:45] LABS: ALANINE AMINOTRANSFERASE 33 U/L (12-78); ALBUMIN 3.6 g/dL (3.4-5.0); ALKALINE PHOSPHATASE 85 U/L (46-116); ASPARTATE AMINOTRANSFERASE 22 U/L (15-37); BILIRUBIN,DIRECT 0.2 mg/dL (0.0-0.2); BILIRUBIN,TOTAL 0.8 mg/dL (0.2-1.0); TOTAL PROTEIN, SERUM 7.1 g/dL (6.4-8.2)
[2022-01-14] MEDS ORDERED: MORPHINE SULFATE INJ 2 MG/ML DISP.SYRIN ONE (02:51)
[2022-01-14] MEDS ORDERED: MORPHINE SULFATE INJ 2 MG/ML DISP.SYRIN IV ONE (03:00)
--- NOTE | 2022-01-14 08:08 | NUR ---
PER ADMITTING IJEOMA, PATIENT IS WAITING FOR BED FROM [facility]
--- NOTE | 2022-01-14 09:28 | NUR ---
IV removed. Catheter intact and site benign. Pressure and 4x4 applied to site. No bleeding noted.Patient does not wish to proceed with medical care recommended by Dr. Hatfield ). Patient given information related to possible complications, up to and including , which could occur as a result of leaving the hospital at this time. Patient verbalizes understanding of risks involved due to leaving against medical advice. Patient has signed AMA form.
[2022-01-14 09:29] VITALS: BP 114/80
== END 2022-01-14 09:29 | disposition left against medical advice (07) ==
LOC: ER 01:48
DX: R07.9 Chest pain, unspecified (principal); Z95.5 Presence of coronary angioplasty implant and graft; I25.2 Old myocardial infarction; J45.909 Unspecified asthma, uncomplicated; Z88.2 Allergy status to sulfonamides; Z87.891 Personal history of nicotine dependence; Z79.82 Long term (current) use of aspirin; Z79.899 Other long term (current) drug therapy; Z79.02 Long term (current) use of antithrombotics/antiplatelets; Z20.822 Contact with and (suspected) exposure to COVID-19
CPT/HCPCS: 99285; 96374; 71045; 87426; 93005; 85025; 80048; 80076; 36415; 84484 ×2; 85730; 87081; J2270; C9803

== ENCOUNTER 2022-03-01 09:48 | Emergency (ER) | payer MEDICAID, OTHER ==
[~2022-03-01] VITALS: Ht 185.4 cm; Wt 86.2 kg
--- NOTE | 2022-03-01 10:00 | NUR ---
BIBRA 39 FOR MEDICAL CLEARANCE C/O CHEST PAIN(PRESSURE) SINCE LAST NIGHT ASP 325 AND NITRO X 5 GIVEN FIELD REP. TO ER BED 12.
--- NOTE | 2022-03-01 10:08 | NUR ---
DR DUFF AT BEDSIDE FOR EVAL
[2022-03-01] MEDS ORDERED: ATORVASTATIN 40 MG TABLET ONE (10:13)
[2022-03-01] MEDS ORDERED: ASPIRIN 81 MG TAB.CHEW ONE (10:14)
[2022-03-01] MEDS ORDERED: METOPROLOL TARTRATE 25 MG TABLET ONE (10:14)
[2022-03-01] MEDS ORDERED: CLOPIDOGREL BISULFATE 75 MG TABLET ONE (10:20)
[2022-03-01] MEDS ORDERED: METOPROLOL TARTRATE 25 MG TABLET PO ONE (10:30)
[2022-03-01] MEDS ORDERED: ASPIRIN 81 MG TAB.CHEW PO ONE (10:30)
[2022-03-01] MEDS ORDERED: ATORVASTATIN 40 MG TABLET PO ONE (10:30)
[2022-03-01] MEDS ORDERED: CLOPIDOGREL BISULFATE 75 MG TABLET PO ONE (10:30)
[2022-03-01 10:32] LABS: BASOPHILS # (AUTO) 0.1 K/uL (0.0-0.2); BASOPHILS % (AUTO) 0.7 % (0.0-2.0); EOSINOPHILS % (AUTO) 1.5 % (0.0-6.0); HEMATOCRIT 43 % (39-51); HEMOGLOBIN 14.7 g/dL (13.5-17.5); LYMPHOCYTES # (AUTO) 1.9 K/uL (0.8-4.8); LYMPHOCYTES % (AUTO) 25.8 % (20.0-44.0); MEAN CORPUSCULAR HGB CONC 34 g/dl (31.0-36.0); MEAN CORPUSCULAR VOLUME 90 fL (80-96); MONOCYTES # (AUTO) 0.8 K/uL (0.1-1.30); MONOCYTES % (AUTO) 10.6 % (2.0-12.0); NEUTROPHILS # (AUTO) 4.6 K/uL (1.8-8.9); NEUTROPHILS % (AUTO) 61.4 % (43.0-81.0); PLATELET COUNT (AUTO) 210 K/uL (150-450); RED BLOOD CELL COUNT(AUTO) 4.77 MIL/uL (4.5-6.0); WHITE BLOOD COUNT (AUTO) 7.4 K/uL (4.3-11.0)
[2022-03-01 10:57] LABS: CALCIUM, SERUM 9.3 mg/dL (8.5-10.1); CARBON DIOXIDE 23 mmol/L (21-32); CHLORIDE 106 mmol/L (98-107); CREATININE 1.1 mg/dL (0.6-1.3); GLUCOSE 84 mg/dL (74-106); POTASSIUM 3.9 mmol/L (3.5-5.1); SODIUM SERUM 140 mmol/L (136-145); UREA NITROGEN, BLOOD 18 mg/dL (7-18)
[2022-03-01] MEDS ORDERED: LORAZEPAM 1 MG TABLET PO ONE (14:00)
[2022-03-01] MEDS ORDERED: LORAZEPAM 1 MG TABLET ONE (14:07)
[2022-03-01 14:29] VITALS: BP 124/76
--- NOTE | 2022-03-01 14:29 | NUR ---
medically cleared. [facility]
== END 2022-03-01 14:30 ==
LOC: ER 09:53
DX: R07.89 Other chest pain (principal); J45.909 Unspecified asthma, uncomplicated; I25.2 Old myocardial infarction; Z98.890 Other specified postprocedural states; Z88.2 Allergy status to sulfonamides; Z88.1 Allergy status to other antibiotic agents; Z87.891 Personal history of nicotine dependence; Z79.82 Long term (current) use of aspirin; Z79.899 Other long term (current) drug therapy
CPT/HCPCS: 36415; 71045-TC; 80048-TC; 84484-TC; 85025-TC